=== PATIENT | female | born 1980 | race Two or more races ===

== ENCOUNTER → 2018-02-11 | Emergency (ER) | payer OTHER ==
[~2018-02-11] VITALS: Ht 157.5 cm; Wt 59.9 kg
== END | disposition home or self-care (01) ==
LOC: ER 09:25
DX: K29.70 Gastritis, unspecified, without bleeding (principal)

== ENCOUNTER 2020-12-11 15:06 | Emergency (ER) | payer OTHER ==
[~2020-12-11] VITALS: Ht 157.5 cm; Wt 57.6 kg
== END 2020-12-11 19:09 | disposition home or self-care (01) ==
LOC: ER 15:06
DX: M94.0 Chondrocostal junction syndrome [Tietze] (principal); R07.89 Other chest pain

== ENCOUNTER 2021-04-14 11:34 | Emergency (ER) | payer OTHER ==
[~2021-04-14] VITALS: Ht 160 cm; Wt 65.8 kg
== END 2021-04-14 15:41 | disposition home or self-care (01) ==
LOC: ER 11:34
DX: N94.4 Primary dysmenorrhea (principal); F06.4 Anxiety disorder due to known physiological condition

== ENCOUNTER 2021-07-06 10:30 | Emergency (ER) | payer OTHER ==
[~2021-07-06] VITALS: Ht 157.5 cm; Wt 54.9 kg
== END 2021-07-06 14:44 | disposition home or self-care (01) ==
LOC: ER 10:30
DX: K52.9 Noninfective gastroenteritis and colitis, unspecified (principal); R53.81 Other malaise; Z11.52 Encounter for screening for COVID-19

== ENCOUNTER 2021-09-27 16:03 | Emergency (ER) | payer OTHER ==
[~2021-09-27] VITALS: Ht 157.5 cm; Wt 59.0 kg
[2021-09-27] MEDS ORDERED: PEPCID AC20 MG PO (20:54)
[2021-09-27] MEDS ORDERED: MEDROLPACK PO (20:54)
[2021-09-27] MEDS ORDERED: MUCINEX DM ER1 EAC1 PO (20:54)
[2021-09-27] MEDS ORDERED: TESSALON PERLE100 M1 PO (20:54)
== END 2021-09-27 21:08 ==
LOC: ER 16:03
DX: U07.1 COVID-19 (principal)